=== PATIENT | male | born 1990 | race Caucasian/White ===

== ENCOUNTER 2023-03-01 08:04 | Day surgery (SDC) | payer OTHER ==
--- NOTE | 2023-02-22 13:58 | HP ---
DATE OF SURGERY: 03/01/2023 HISTORY OF PRESENT ILLNESS: The patient is a 32-year-old male presented for food bolus removal. He states he has had multiple boluses removed in the past. He did have an episode of dysphagia after the last bolus removal. He presents for dilatation. PAST MEDICAL HISTORY: Back pain, ADHD. PAST SURGICAL HISTORY: Tonsillectomy. L5-S1 disc repair. ALLERGIES: NKDA. MEDICATIONS: Tizanidine, hydrocodone, dextroamphetamine. FAMILY HISTORY: None reported. SOCIAL HISTORY: Negative. REVIEW OF SYSTEMS: CONSTITUTIONAL: Denies fever or chills. CHEST: Denies shortness of breath. CVS: Denies chest pain. ABDOMEN: Denies abdominal pain. PHYSICAL EXAMINATION: GENERAL: No acute distress. CHEST: Nonlabored. No shortness of breath. CVS: Regular rate and rhythm. ABDOMEN: Soft. IMPRESSION: Dysphagia. PLAN: EGD with possible dilatation with Dr. Danyel Gaffney. As dictated by Vicky Squires NP.
[2023-03-01] MEDS ORDERED: Lactated Ringers 1,000 ML IV ONE (08:23)
[2023-03-01] MEDS ORDERED: Lactated Ringers 1,000 ML IV SCH (09:00)
[2023-03-01] MEDS ORDERED: DIPRIVAN 200 MG/20 ML IV ONE ×2 (10:31→11:04)
[2023-03-01] MEDS ORDERED: SUBLIMAZE 100 MCG/2 ML ONE (10:31)
[2023-03-01] MEDS ORDERED: Versed 2 MG/2 ML Injection ONE (10:31)
--- NOTE | 2023-03-01 12:56 | OP ---
SURGERY DATE/TIME: 03/01/2023 1058 PREOPERATIVE DIAGNOSES: 1) Previous foreign body in the esophagus that was stuck and lodged requiring dislodgement. 2) Recently just a week ago he had something partially stuck. POSTOPERATIVE DIAGNOSIS: 1) Previous foreign body in the esophagus that was stuck and lodged requiring dislodgement. 2) Recently just a week ago he had something partially stuck. PROCEDURE: EGD with dilatation. SURGEON: Danyel Gaffney M.D. HEAT TREAT OPERATOR: Shlomo Piper M.D., [facility] Resident. ANESTHESIA: General. COMPLICATIONS: None. CONDITION: Stable. INDICATION: The patient was brought in for dilatation. DESCRIPTION OF PROCEDURE: Left lateral decubitus position. Pharyngoesophageal junction MAC sedation was cannulated. Esophagus down to gastroesophageal junction. The gastroesophageal junction fairly satisfactory. No hiatal hernia. Fundus, body and antrum normal. Pylorus normal. Keyhole view normal. Second portion normal. Scope withdrawn looped upon itself satisfactory from below. Bringing the scope back there was a tightness in the distal esophagus. Size 44 would not pass. A size 40 passed satisfactorily. It was straight on in the esophagus, this was 42, 44 and 46 sequentially very readily placed without any difficulty dilating this to size 46. I believe it was probably a 36 originally. Placing the scope back in about 60% of the way down there was some mucosal disruption for about 2 inches on the left lateral side wall consistent with dilatation this did not look excessively unusual. Few trickles of blood. He was placed on full liquids, temperature monitoring and instructions.
[2023-03-01 13:05] LABS: BLOOD UREA NITROGEN 14 mg/dL (9-20); Creatinine 1 1.16 mg/dL (0.66-1.25); EST GLOMERULAR FILTRATION RATE > 60.0 ML/MIN
--- NOTE | 2023-03-01 13:52 | XRAY ---
Indication: Possible bleed following esophageal dilatation. Esophagram performed in AP, oblique, and lateral planes. Patient ingested diluted Gastrografin without miss swallow or aspiration. Esophagus is normal in course and caliber. No focal stricture, obstruction, filling defect, or Gastrografin extravasation. Gastrografin freely empties into the stomach. No hiatal hernia demonstrated. Impression: Negative Gastrografin esophagram. 0.4 minute fluoroscopy used.
[2023-03-01] MEDS ORDERED: MORPHINE SULFATE 2 MG INJ IV PRN (14:05)
[2023-03-01] MEDS: Hydromorphone 1 mg/ml Injection IV PRN ×4 (15:29→22:05)
[2023-03-01] MEDS: PIPERACILLIN/TAZOBACTAM 3.375 GM in Sodium Chloride 100ML MINI-BAG PLUS 100 ML IV SCH ×2 (17:32→22:05)
[2023-03-01] MEDS: D5W/0.45NS W/ 20mEq KCl 1000 ML 1,000 ML IV SCH (17:32)
[2023-03-01] MEDS ORDERED: Cyclobenzaprine 10 MG PO PRN (18:28)
[2023-03-01] MEDS: XYLOCAINE HCl Viscous MM PRN (18:46)
[2023-03-02] MEDS: D5W/0.45NS W/ 20mEq KCl 1000 ML 1,000 ML IV SCH ×2 (03:00→16:19)
[2023-03-02] MEDS: Hydromorphone 1 mg/ml Injection IV PRN ×4 (03:00→10:38)
[2023-03-02] MEDS: PIPERACILLIN/TAZOBACTAM 3.375 GM in Sodium Chloride 100ML MINI-BAG PLUS 100 ML IV SCH ×2 (06:16→14:43)
[2023-03-02] MEDS: XYLOCAINE HCl Viscous MM PRN (08:17)
[2023-03-02 08:18] VITALS: TEMP 98.1
[2023-03-02 11:50] VITALS: PULSE 78
--- NOTE | 2023-03-02 14:01 | XRAY ---
Indication: Constant pain with swallowing. Status post esophageal dilatation. Multiple contiguous axial images obtained through the neck using 100 cc Isovue 370 contrast. Comparison: None Parotid and submandibular glands are bilaterally symmetric. No pathologic cervical/supraclavicular lymphadenopathy. Thyroid gland enhances homogeneously. Major arteries and veins are normal in course and caliber. No abnormal fluid/air collection. Supra and infraglottic airway widely patent. Normal epiglottis. Visualized osseous structures and cervical spine intact. Base of brain unremarkable. CT chest reported separately. Impression: CT neck with contrast exam is negative.
--- NOTE | 2023-03-02 14:11 | XRAY ---
Indication: Constant pain with swallowing. Status post esophageal dilatation. Multiple contiguous axial images obtained through the chest using 100 cc Isovue 370 contrast. Comparison: None Lungs demonstrate minimal bilateral dependent atelectasis and small inferior right upper lobe calcific granuloma. No suspicious pulmonary mass/nodule, infiltrate, effusion, or pneumothorax. Heart is not enlarged. Aorta is normal in course and caliber. Tiny right hilar calcified nodes. No pathologic mediastinal/hilar lymphadenopathy. A few tiny air bubbles seen in the wall of the esophagus, specifically proximal and distal segments. No pneumomediastinum to suggest perforation. Bony thorax intact with minimal degenerative changes throughout the spine. Limited upper abdomen demonstrates diffuse fatty liver. Impression: 1. Tiny proximal and distal esophageal intramural pneumatosis. Query if findings may be related to recent esophageal dilatation. Negative for pneumomediastinum. 2. Chronic findings including degenerative spondylosis, fatty liver, and old granulomatous disease.
[2023-03-02 15:39] VITALS: BP 110/65; RESP 17; O2SAT 98
== END 2023-03-02 18:47 | disposition home or self-care (01) ==
LOC: SDC 08:04 → MED SURG 14:00 → SDC 03-02 18:47
PROVIDERS: ATTEND Surgery
DX: T18.108A Unspecified foreign body in esophagus causing other injury, initial encounter (principal)
CPT/HCPCS: 36415; 70491; 71260; 74220; 82565; 84520; J1170; J2250; J2270; J2704; J3010; A9270-GY